=== PATIENT | male | born 1950 | race African-American/Black ===

== ENCOUNTER 2021-04-01 13:04 | Inpatient (IN) ==
[2021-04-01] MEDS ORDERED: GLUCAGON 1 MG VIAL IM PRN ×2 (16:51→17:02)
[2021-04-01] MEDS ORDERED: DEXTROSE 50% 25 GM/50 ML VIAL IV PRN ×2 (16:51→17:02)
[2021-04-01] MEDS ORDERED: ONDANSETRON 4 MG/2 ML VIAL IV PRN (17:02)
[2021-04-01] MEDS ORDERED: ACETAMINOPHEN 325 MG TABLET PO PRN (17:02)
[2021-04-01] MEDS ORDERED: HEPARIN DRIP 25,000 UNITS/500 ML PREMIX IV SCH (17:30)
[2021-04-01] MEDS ORDERED: NITROGLYCERIN SL 0.4 MG TABLET SL PRN (20:06)
[2021-04-01] MEDS: RANOLAZINE 500 MG TABLET PO SCH (21:39)
[2021-04-01] MEDS: hydrALAZINE 25 MG TABLET PO SCH (21:39)
[2021-04-01] MEDS: ISOSORBIDE DINITRATE 20 MG TABLET PO SCH (21:39)
[2021-04-01] MEDS: carvediloL 25 MG TABLET PO SCH (21:39)
[2021-04-01] MEDS: ATORVASTATIN 40 MG TABLET PO SCH (21:40)
[2021-04-01] MEDS: INSULIN LISPRO 100 UNIT/ML SUBCUT SCH (22:04)
[2021-04-01] MEDS: INSULIN NPH/REGULAR 70/30 100 UNIT/ML SUBCUT SCH (22:05)
[2021-04-02] MEDS ORDERED: ZALEPLON 5 MG CAPSULE PO PRN (01:00)
[2021-04-02 06:53] LABS: Basophils % 0.7 % (0.0-0.8); Eosinophils # 0.3 10*3/uL (0.0-0.87); Eosinophils % 4.8 % (0.00-10.9); Hematocrit 37.3 VOL% (42.0-52.0); Hemoglobin 11.7 GM/DL (14.0-18.0); Immature Granulocytes % 0.3 %; Immature Granulocytes Absolute 0.02 #; Lymphocytes # 1.3 10*3/uL (1.4-4.0); Mean Corpuscular HGB Conc 31.4 GM/DL (32-36); Mean Corpuscular Volume 81.3 FL (87-102); Monocytes % 12.5 % (1.7-12.7); Neutrophils % 59.7 % (38.7-73.9); Platelet Count 110 T/CUMM (130-400); Red Blood Count 4.59 MC/CUMM (3.8-5.5); Red Cell Distribution Width 16.8 % (9.3-17.3)
[2021-04-02 07:14] LABS: Calcium 8.5 MG/DL (8.5-10.1); Osmolality,Calculated 285.1 MOS/KG (273-304); Potassium 4.3 MMOL/L (3.5-5.1); Risk Ratio 2.78; Thyroid Stimulating Hormone 2.33 uIU/ml (0.358-3.74); VLDL CHOLESTEROL 21.8 MG/DL
[2021-04-02 07:32] LABS: Hypochromasia Slight; Microcytosis Slight; Ovalocytes Slight
[2021-04-02] MEDS: allopurinoL 100 MG TABLET PO SCH (08:16)
[2021-04-02] MEDS: RANOLAZINE 500 MG TABLET PO SCH ×2 (08:17→21:12)
[2021-04-02] MEDS: ISOSORBIDE DINITRATE 20 MG TABLET PO SCH ×3 (08:17→21:13)
[2021-04-02] MEDS: ASPIRIN EC 81 MG TABLET PO SCH (08:18)
[2021-04-02] MEDS: carvediloL 25 MG TABLET PO SCH ×2 (08:18→21:13)
[2021-04-02] MEDS: FUROSEMIDE 40 MG/4 ML VIAL IV SCH ×2 (08:18→16:49)
[2021-04-02] MEDS: CLOPIDOGREL 75 MG TABLET PO SCH (08:18)
[2021-04-02] MEDS: PANTOPRAZOLE 40 MG TABLET PO SCH (08:18)
[2021-04-02] MEDS: hydrALAZINE 25 MG TABLET PO SCH (08:18)
[2021-04-02] MEDS: INSULIN NPH/REGULAR 70/30 100 UNIT/ML SUBCUT SCH ×2 (08:23→21:57)
[2021-04-02] MEDS: INSULIN LISPRO 100 UNIT/ML SUBCUT SCH ×4 (08:23→21:57)
[2021-04-02] MEDS: ATORVASTATIN 40 MG TABLET PO SCH (21:13)
[2021-04-03 05:14] LABS: Basophils % 0.4 % (0.0-0.8); Eosinophils # 0.3 10*3/uL (0.0-0.87); Eosinophils % 4.8 % (0.00-10.9); Hematocrit 37.4 VOL% (42.0-52.0); Hemoglobin 11.3 GM/DL (14.0-18.0); Immature Granulocytes % 0.5 %; Immature Granulocytes Absolute 0.03 #; Lymphocytes # 1.6 10*3/uL (1.4-4.0); Lymphocytes % 28.9 % (21.2-54.2); Mean Corpuscular HGB Conc 30.2 GM/DL (32-36); Mean Corpuscular Volume 83.5 FL (87-102); Mean Platelet Volume 13.7 FL (9.6-12.0); Monocytes % 11.6 % (1.7-12.7); Neutrophils % 53.8 % (38.7-73.9); Platelet Count 138 T/CUMM (130-400); Red Blood Count 4.48 MC/CUMM (3.8-5.5); Red Cell Distribution Width 16.7 % (9.3-17.3); White Blood Count 5.7 T/CUMM (4-12)
[2021-04-03 05:32] LABS: Calcium 8.3 MG/DL (8.5-10.1)
[2021-04-03 05:35] LABS: Hypochromasia 1+; Microcytosis 1+; Platelet Estimate Adequate
[2021-04-03] MEDS: INSULIN LISPRO 100 UNIT/ML SUBCUT SCH ×4 (08:26→21:08)
[2021-04-03] MEDS: INSULIN NPH/REGULAR 70/30 100 UNIT/ML SUBCUT SCH ×2 (08:26→21:08)
[2021-04-03] MEDS: ASPIRIN EC 81 MG TABLET PO SCH (08:27)
[2021-04-03] MEDS: RANOLAZINE 500 MG TABLET PO SCH ×2 (08:27→21:07)
[2021-04-03] MEDS: ISOSORBIDE DINITRATE 20 MG TABLET PO SCH ×3 (08:27→21:07)
[2021-04-03] MEDS: CLOPIDOGREL 75 MG TABLET PO SCH (08:27)
[2021-04-03] MEDS: FUROSEMIDE 40 MG/4 ML VIAL IV SCH ×2 (08:28→15:35)
[2021-04-03] MEDS: PANTOPRAZOLE 40 MG TABLET PO SCH (08:28)
[2021-04-03] MEDS: carvediloL 25 MG TABLET PO SCH ×2 (08:28→21:07)
[2021-04-03] MEDS: allopurinoL 100 MG TABLET PO SCH (08:28)
[2021-04-03] MEDS: ATORVASTATIN 40 MG TABLET PO SCH (21:07)
[2021-04-04 05:34] LABS: Basophils % 0.3 % (0.0-0.8); Eosinophils # 0.3 10*3/uL (0.0-0.87); Eosinophils % 5.1 % (0.00-10.9); Hematocrit 37.1 VOL% (42.0-52.0); Hemoglobin 11.4 GM/DL (14.0-18.0); Immature Granulocytes % 0.2 %; Immature Granulocytes Absolute 0.01 #; Lymphocytes # 1.7 10*3/uL (1.4-4.0); Lymphocytes % 29.3 % (21.2-54.2); Mean Corpuscular HGB Conc 30.7 GM/DL (32-36); Mean Corpuscular Volume 83.4 FL (87-102); Monocytes % 12.3 % (1.7-12.7); Neutrophils % 52.8 % (38.7-73.9); Platelet Count 135 T/CUMM (130-400); Red Blood Count 4.45 MC/CUMM (3.8-5.5); Red Cell Distribution Width 16.5 % (9.3-17.3); White Blood Count 5.9 T/CUMM (4-12)
[2021-04-04 05:55] LABS: Calcium 8.6 MG/DL (8.5-10.1); Osmolality,Calculated 296.5 MOS/KG (273-304); Potassium 3.8 MMOL/L (3.5-5.1)
[2021-04-04 05:57] LABS: Hypochromasia Slight; Microcytosis Slight; Platelet Estimate Adequate
[2021-04-04] MEDS: INSULIN LISPRO 100 UNIT/ML SUBCUT SCH ×2 (07:28→11:23)
[2021-04-04] MEDS: ASPIRIN EC 81 MG TABLET PO SCH (08:50)
[2021-04-04] MEDS: allopurinoL 100 MG TABLET PO SCH (08:50)
[2021-04-04] MEDS: RANOLAZINE 500 MG TABLET PO SCH (08:50)
[2021-04-04] MEDS: carvediloL 25 MG TABLET PO SCH (08:50)
[2021-04-04] MEDS: PANTOPRAZOLE 40 MG TABLET PO SCH (08:50)
[2021-04-04] MEDS: ISOSORBIDE DINITRATE 20 MG TABLET PO SCH (08:50)
[2021-04-04] MEDS: CLOPIDOGREL 75 MG TABLET PO SCH (08:50)
[2021-04-04] MEDS: INSULIN NPH/REGULAR 70/30 100 UNIT/ML SUBCUT SCH (09:19)
[2021-04-04 11:41] VITALS: BP 138/78
== END 2021-04-04 15:25 | disposition home or self-care (01) | DRG 291 ==
LOC: SUATTDRO 14:59 → N.TELES 14:59
PROVIDERS: ADMIT Internal Medicine; ATTEND Emergency Medicine